=== PATIENT | female | born 1985 | race Caucasian/White ===

== ENCOUNTER → 2017-03-02 | Outpatient (CLI) | payer OTHER ==
[~2017-03-02] MED LIST: CLINDAMAX2%; CONCERTA27 MG PO; FEXOFENADINE180 MG PO; LEVOFLOXACIN500 MG PO; MIRENA52 MG IU; MULTIPLE VITAMI1 CAP PO; PRINIVIL10 MG PO; PRISTIQ100 MG PO; REQUIP 0.5MG0.5 MG PO; RETIN-A0.025% TP; TOPIRAMATE50 MG PO; ZITHROMAX Z PA250 MG PO; ZYRTEC 10MG10 MG PO
== END ==
LOC: COL.RAD 12:22
DX: R10.2 Pelvic and perineal pain (principal); Z97.5 Presence of (intrauterine) contraceptive device